=== PATIENT | male | born 1995 | race Caucasian/White ===

== ENCOUNTER 2019-02-02 18:14 | Emergency (ER) | payer OTHER ==
--- NOTE | 2019-02-02 18:51 | RAD ---
LEFT HAND THREE VIEWS: HISTORY: Hand injury. FINDINGS: The carpals, metacarpals and phalanges appear unremarkable. No osseous abnormality identified. IMPRESSION: No osseous abnormality. POS: AGW
[2019-02-02] MEDS ORDERED: Lidocaine 1% (PF) 30 ML VIAL ONE (18:58)
[2019-02-02] MEDS ORDERED: Adacel (T-DAP) 0.5 ML SYRINGE ONE (19:54)
[2019-02-02] MEDS ORDERED: Bacitracin 1 PK ONE (20:21)
== END 2019-02-02 20:25 | disposition home or self-care (01) ==
LOC: ERS 18:14
DX: S61.217A Laceration without foreign body of left little finger without damage to nail, initial encounter (principal); F17.220 Nicotine dependence, chewing tobacco, uncomplicated; W11.XXXA Fall on and from ladder, initial encounter
CPT/HCPCS: 12002; 90471; 90715; J2001